=== PATIENT | female | born 1925 | race Caucasian/White ===

== ENCOUNTER 2016-04-15 11:54 | Inpatient (IN) | payer MEDICARE ==
[~2016-04-15] VITALS: Ht 157.5 cm; Wt 49.0 kg
[~2016-04-15 11:54] MED LIST: ALPR0.254 PO; AZIT-21 PO; ESCI10TA55 PO; FLUO20CA25 PO; GUAI120S36 PO; IBP600T1; MELO7.5T PO; MEMA28CA PO; METO25TA PO; MTP25TSR PO; OMEP-10 PO; OMEP20TA7 PO; ONDA4TAB8 PO; PRAV10TA PO; PROP1TAB77 PO; SMV10T PO; TRAM50TA2 PO; cholesterol pill
[2016-04-15] MEDS ORDERED: METO-270 (12:30)
[2016-04-15 13:40] LABS: RED BLOOD COUNT 4.61 10^6/uL (4.35-5.85); WHITE BLOOD COUNT 6.9 10^3/uL (4.3-11.0)
[2016-04-15 13:41] LABS: BASOPHILS % (AUTO) 0 % (0-10); EOSINOPHILS % (AUTO) 1 % (0-10); LYMPHOCYTES # (AUTO) 1.4 X 10^3 (1.0-4.0); LYMPHOCYTES % (AUTO) 20 % (12-44); MEAN CORPUSCULAR HEMOGLOBIN 31 PG (25-34); MEAN CORPUSCULAR HGB CONC 34 G/DL (32-36); MEAN CORPUSCULAR VOLUME 92 FL (80-99); MEAN PLATELET VOLUME 10.2 FL (7.4-10.4); MONOCYTES # (AUTO) 0.9 X 10^3 (0.0-1.0); MONOCYTES % (AUTO) 13 % (0-12); NEUTROPHILS # (AUTO) 4.6 X 10^3 (1.8-7.8); NEUTROPHILS % (AUTO) 67 % (42-75); PLATELET COUNT 185 10^3/uL (130-400); RED CELL DISTRIBUTION WIDTH 12.9 % (10.0-14.5)
[2016-04-15 13:45] LABS: KETONES,URINE 1+ (NEGATIVE); LEUKOCYTE ESTERASE ,URINE 3+ (NEGATIVE); NITRITE,URINE POSITIVE (NEGATIVE); PH,URINE 5 (5-9); PROTEIN,URINE 3+ (NEGATIVE); UROBILINOGEN,URINE 4 MG/DL (NORMAL)
--- NOTE | 2016-04-15 13:54 | Diagnostic Imaging Report ---
EXAMINATION: Left elbow at 129h. INDICATION: Fell 2 weeks ago, elbow pain. 4 views were obtained. There are no prior studies available for comparison. There is a slightly displaced fracture extending obliquely through the lateral epicondyle. There may be another transverse fracture line in this region as well. In addition there does appear to be mild impaction fracture of the articular surface of the radial head. No other fracture or acute bony abnormality is identified. 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 There is also generalized soft tissue edema about the elbow joint. IMPRESSION: There is a complex slightly displaced fracture of the lateral epicondyle of the distal humerus. There is also a mild impaction fracture of the articular surface of the radial head. No other acute bony abnormality is noted. If further imaging is desired, then CT would be recommended. There is generalized soft tissue edema about the elbow joint. Dictated by: Dictated on workstation # [id number]
[2016-04-15 13:55] LABS: ALANINE AMINOTRANSFERASE 9 U/L (0-55); ALBUMIN 4.1 G/DL (3.2-4.5); ANION GAP 10 MMOL/L (5-14); ASPARTATE AMINO TRANSFERASE 13 U/L (5-34); BILIRUBIN,TOTAL 1.5 MG/DL (0.1-1.0); BLOOD UREA NITROGEN 10 MG/DL (7-18); BUN/CREATININE RATIO 13; CALCIUM 9.6 MG/DL (8.5-10.1); CARBON DIOXIDE 24 MMOL/L (21-32); CHLORIDE 104 MMOL/L (98-107); CREATININE SERUM 0.77 MG/DL (0.60-1.30); GFR ESTIMATED > 60; GLUCOSE 100 MG/DL (70-105); POTASSIUM 3.7 MMOL/L (3.6-5.0); SODIUM 138 MMOL/L (135-145); TOTAL PROTEIN 7.3 G/DL (6.4-8.2)
[2016-04-15 14:03] LABS: BILIRUBIN,URINE 1+ (NEGATIVE)
[2016-04-15 14:04] LABS: WBC,URINE 25-50 /HPF
--- NOTE | 2016-04-15 14:42 | ED Upper Extremity ---
General Chief Complaint: Upper Extremity Stated Complaint: FALL/L ELBOW INJ Nursing Triage Note: Son states patient fell on deck yesterday morning around 0700- c/o left elbow pain, mild swelling and bruising. Denies loc or hitting head. HR noted to be irreg on monitor. Pt states she has been weak Nursing Sepsis Screen: No Definite Risk Source: patient, family Exam Limitations: clinical condition History of Present Illness Time seen by provider: 14:36 Initial Comments This 89-year-old white female presents with her son after she fell on her deck yesterday sustaining an injury to her left elbow which has become progressively red and swollen. Further history from this done reveals that the patient has been falling frequently at home. She suffers from dementia. The son and the rest of the siblings appreciate that the patient is not adequately protected at home without significantly more personal support. The patient has no particular complaints. She suffers from dementia but is pleasant and cooperative on history taking. Allergies and Home Medications Allergies Coded Allergies: morphine (Unverified Allergy, Unknown, 04/15/16) oxycodone (Verified Allergy, Unknown, 04/15/16) Home Medications Alprazolam 0.25 Mg Tablet #60 (Reported) Escitalopram Oxalate 10 Mg Tablet #30 (Reported) Memantine HCl 28 Mg Cap.spr.24 #30 (Reported) Metoprolol Succinate 25 Mg Tab.sr.24h 25 MG PO DAILY (Reported) Metoprolol Succinate 25 Mg Tab.er.24h #30 (Reported) Omeprazole 20 Mg Tablet.dr #30 20 MG PO BID Prescribed by: NIKA LAW on 08/29/151814 Ondansetron 4 Mg Tab.rapdis #10 4 MG PO Q4H PRN PRN NAUSEA/VOMITING Prescribed by: NIKA LAW on 08/29/151814 Pravastatin Sodium 10 Mg Tablet #30 (Reported) Simvastatin 10 Mg Tab 10 MG PO HS (Reported) Constitutional: no symptoms reported EENTM: ear pain vision loss Respiratory: cough Gastrointestinal: diarrhea vomiting Genitourinary: no symptoms reported Musculoskeletal: see HPI other (pain and swelling over the left elbow) Skin: No rash, other Psychiatric/Neurological: No Symptoms Reported (there is a cellulitis over the left elbow with moderate soft tissue swelling) Past Eakgedi-Xhdxes-Urqhwa Hx Patient Social History Alcohol Use: Denies Use Recreational Drug Use: No Smoking Status: Never a Smoker 2nd Hand Smoke Exposure: Yes Recent Foreign Travel: No Contact w/Someone Who Travel: No Recent Infectious Disease Expo: No Recent Hopitalizations: No Immunizations Up To Date Tetanus Booster (TDap): Unknown Date of Pneumonia Vaccine: Nov 12, 2011 Surgeries HX Surgeries: Yes Surgeries: Hysterectomy, Orthopedic Respiratory Hx Respiratory Disorders: No Cardiovascular Hx Cardiac Disorders: Yes Cardiac Disorders: Angina, High Cholesterol Neurological Hx Neurological Disorders: Yes Neurological Disorders: Dementia Reproductive System Hx Reproductive Disorders: No Genitourinary Hx Genitourinary Disorders: No Gastrointestinal Hx Gastrointestinal Disorders: Yes Gastrointestinal Disorders: Diverticulosis, Irritable Bowel Musculoskeletal Hx Musculoskeletal Disorders: Yes Musculoskeletal Disorders: Arthritis, Back Injury Endocrine Hx Endocrine Disorders: No HEENT HX ENT Disorders: No Cancer Hx Cancer: No Psychosocial Hx Psychiatric Problems: Yes Behavioral Health Disorders: Anxiety Integumentary HX Skin/Integumentary Disorder: No Blood Transfusions Hx Blood Disorders: No Reviewed Nursing Assessment Reviewed/Agree w Nursing PMH: Yes Family Medical History Significant Family History: No Pertinent Family Hx Physical Exam Vital Signs Vital Sign - Last 12Hours 04/15/16 12:23 Pulse 80 Resp 18 B/P 104/63 Pulse Ox 99 Capillary Refill : Less Than 3 Seconds General Appearance: WD/WN no apparent distress HEENT: normal ENT inspection Neck: normal inspection Cardiovascular: regular rate, rhythm Respiratory: lungs clear Gastrointestinal: normal bowel sounds non tender Shoulder: normal inspection non-tender no evidence of injury Elbow/Forearm: soft tissue tenderness (there is cellulitis over the posterior aspect left elbow. No crepitus or instability was noted.), swelling Wrist: Yes normal inspection, Yes non-tender, Yes no evidence of injury Hand: normal inspection, non-tender, no evidence of injury Neurologic/Psychiatric: no motor/sensory deficits other (patient demonstrates an inability to cerebrate normally. Although she is oriented to person place and time she is unable to recall events and has confusion concerning common things) Skin: normal color warm/dry other Progress/Results/Core Measures Results/Orders Lab Results Laboratory Tests Test 04/15/16 12:15 04/15/16 13:30 Range/Units Urine Bacteria FEW H /HPF Urine Bilirubin 1+ H NEGATIVE Urine Casts NONE /LPF Urine Clarity SLIGHTLY CLOUDY Urine Color ILDA H Urine Crystals NONE /LPF Urine Culture Indicated YES Urine Glucose (UA) NEGATIVE NEGATIVE Urine Ketones 1+ H NEGATIVE Urine Leukocyte Esterase 3+ H NEGATIVE Urine Mucus LARGE H /LPF Urine Nitrite POSITIVE H NEGATIVE Urine Protein 3+ H NEGATIVE Urine RBC 2-5 H /HPF Urine RBC (Auto) 1+ H NEGATIVE Urine Specific Bradley 1.020 1.016-1.022 Urine Squamous Epithelial Cells 10-25 H /HPF Urine Urobilinogen 4 H NORMAL MG/DL Urine WBC 25-50 H /HPF Urine pH 5 5-9 Alanine Aminotransferase (ALT/SGPT) 9 0-55 U/L Albumin 4.1 3.2-4.5 G/DL Alkaline Phosphatase 102 40-136 U/L Anion Gap 10 5-14 MMOL/L Aspartate Amino Transf (AST/SGOT) 13 5-34 U/L BUN/Creatinine Ratio 13 Basophils # (Auto) 0.0 0.0-0.1 10^3/uL Basophils (%) (Auto) 0 0-10 % Blood Urea Nitrogen 10 7-18 MG/DL Calcium Level 9.6 8.5-10.1 MG/DL Carbon Dioxide Level 24 21-32 MMOL/L Chloride Level 104 98-107 MMOL/L Creatinine 0.77 0.60-1.30 MG/DL Eosinophils # (Auto) 0.0 0.0-0.3 10^3/uL Eosinophils (%) (Auto) 1 0-10 % Estimat Glomerular Filtration Rate > 60 Glucose Level 100 70-105 MG/DL Hematocrit 43 35-52 % Hemoglobin 14.4 11.5-16.0 G/DL Lymphocytes # (Auto) 1.4 1.0-4.0 X 10^3 Lymphocytes (%) (Auto) 20 12-44 % Mean Corpuscular Hemoglobin 31 25-34 PG Mean Corpuscular Hemoglobin Concent 34 32-36 G/DL Mean Corpuscular Volume 92 80-99 FL Mean Platelet Volume 10.2 7.4-10.4 FL Monocytes # (Auto) 0.9 0.0-1.0 X 10^3 Monocytes (%) (Auto) 13 H 0-12 % Neutrophils # (Auto) 4.6 1.8-7.8 X 10^3 Neutrophils (%) (Auto) 67 42-75 % Platelet Count 185 130-400 10^3/uL Potassium Level 3.7 3.6-5.0 MMOL/L Red Blood Count 4.61 4.35-5.85 10^6/uL Red Cell Distribution Width 12.9 10.0-14.5 % Sodium Level 138 135-145 MMOL/L Total Bilirubin 1.5 H 0.1-1.0 MG/DL Total Protein 7.3 6.4-8.2 G/DL White Blood Count 6.9 4.3-11.0 10^3/uL My Orders Orders-KEATON MAYA MD Cbc With Automated Diff (04/15/16 12:53) Comprehensive Metabolic Panel (04/15/16 12:53) Ua Culture If Indicated (04/15/16 12:53) Elbow, Left, 3 Views (04/15/16 12:53) Urine Culture (04/15/16 12:15) Ceftriaxone Injection (Rocephin Injectio (04/15/16 14:45) Vital Signs/I&O Vital Sign - Last 12Hours 04/15/16 12:23 Pulse 80 Resp 18 B/P 104/63 Pulse Ox 99 Blood Pressure Mean: 77 Progress Note : Time: 14:40 Progress Note The patient's left elbow x-ray demonstrated a comminuted nondisplaced left supracondylar fracture over his lateral aspect. Because of the cellulitis overlying the joint gram of Rocephin IV was given. Telephone consultation was undertaken with Dr. GRIMALDO and arrangements were made for the patient to be admitted and for social worker delinquency prevention to see her in the morning for assistance with placement. Dr. Alcantar was notified and will see the patient tomorrow in the hospital for her left supracondylar fracture. We discussed IV Rocephin which she thought was a reasonable choice as well as not immobilizing the patient's extremity as she appeared to be essentially pain- free. Departure Impression Impression: Primary Impression: Elbow fracture, left Qualified Code: S42.402A - Unspecified fracture of lower end of left humerus, initial encounter for closed fracture Additional Impressions: Frequent falls Dementia Qualified Code: F03.90 - Unspecified dementia without behavioral disturbance Disposition: ADMITTED INPATIENT Condition: Improved Departure-Patient Inst. Referrals: LOAN GRIMALDO MD (PCP/Family) Primary Care Physician KEATON MAYA MD Apr 15, 2016 14:42
[2016-04-15] MEDS ORDERED: cefTRIAXone INJECTION 1,000 MG in NS (IVPB) 50 ML IV ONE (14:45)
[2016-04-15] MEDS ORDERED: ONDANSETRON 4 MG/2 ML (SDV) Z0FRAN IV PRN (16:15)
[2016-04-15] MEDS ORDERED: fentaNYL INJECTION 100 MCG/2 ML AMP IV PRN (16:15)
[2016-04-15 16:30] VITALS: BP 114/68
[2016-04-15] MEDS ORDERED: ALPRAZolam 0.25 MG (XANAX) TAB PO PRN (19:00)
[2016-04-15 20:00] VITALS: BP 134/73
[2016-04-15] MEDS: PANTOPRAZOLE 40 MG (PROTONIX) TAB PO SCH (21:32)
[2016-04-16] VITALS: BP 118/56
[2016-04-16 04:00] VITALS: BP 141/60
--- NOTE | 2016-04-16 07:35 | Consultation ---
History of Present Illness History of Present Illness Patient Consulted On(mary/time) 04/16/16 07:30 Date of Admission 04/15/16 History of Present Illness Ms. Desir is a 89 y/o white female who presented to the ER with left elbow pain. Patient has a significant past medical history of dementia. She originally reported falling 2 days prior, and injuring the elbow. However, during my exam she stated that she fell 2 weeks prior. X-rays were performed in the ER, which revealed a lateral condyle humerus fracture, and impacted radius head fracture. Patient was initiated on Rocephin, due to cellulitis at the site. She has several eschars and abrasion on the left elbow, with healing more consistent with a injury greater than 1 week ago. She denies pain in the extremity. Allergies and Home Medications Allergies Coded Allergies: morphine (Unverified Allergy, Unknown, 04/15/16) oxycodone (Verified Allergy, Unknown, 04/15/16) Home Medications Alprazolam 0.25 Mg Tablet 0.25 MG PO QID PRN PRN ANXIETY (Reported) Escitalopram Oxalate 10 Mg Tablet 10 MG PO DAILY (Reported) Memantine HCl 28 Mg Cap.spr.24 28 MG PO DAILY (Reported) Metoprolol Succinate 25 Mg Tab.sr.24h 25 MG PO DAILY (Reported) Omeprazole 20 Mg Capsule.dr 20 MG PO DAILY PRN PRN INDIGESTION (Reported) Pravastatin Sodium 10 Mg Tablet 10 MG PO DAILY (Reported) Past Wbfhuwo-Xwslqa-Nlzhpz Hx Patient Social History Alcohol Use: Denies Use Recreational Drug Use: No Smoking Status: Never a Smoker 2nd Hand Smoke Exposure: Yes Recent Foreign Travel: No Contact w/Someone Who Travel: No Recent Infectious Disease Expo: No Recent Hopitalizations: No Physical Abuse Screen: No Sexual Abuse: No Immunizations Up To Date Tetanus Booster (TDap): Unknown Date of Pneumonia Vaccine: Nov 12, 2011 Date of Influenza Vaccine: Nov 16, 2015 Seasonal Allergies Seasonal Allergies: No Surgeries HX Surgeries: Yes Surgeries: Hysterectomy, Orthopedic Respiratory Hx Respiratory Disorders: No Cardiovascular Hx Cardiac Disorders: Yes Cardiac Disorders: Angina, High Cholesterol Neurological Hx Neurological Disorders: Yes Neurological Disorders: Dementia Reproductive System Hx Reproductive Disorders: No Genitourinary Hx Genitourinary Disorders: No Gastrointestinal Hx Gastrointestinal Disorders: Yes Gastrointestinal Disorders: Diverticulosis, Irritable Bowel Musculoskeletal Hx Musculoskeletal Disorders: Yes Musculoskeletal Disorders: Arthritis, Back Injury Endocrine Hx Endocrine Disorders: No HEENT HX ENT Disorders: No Cancer Hx Cancer: No Psychosocial Hx Psychiatric Problems: Yes Behavioral Health Disorders: Anxiety Integumentary HX Skin/Integumentary Disorder: No Blood Transfusions Hx Blood Disorders: No Reviewed Nursing Assessment Reviewed/Agree w Nursing PMH: Yes Family Medical History Significant Family History: No Pertinent Family Hx Family Medial History: Cardiovascular disease Dementia Hypertension Myocardial infarction Review of Systems-General Constitutional: No chills Respiratory: no symptoms reported Cardiovascular: no symptoms reported Musculoskeletal: see HPI Skin: change in color Psychiatric/Neurological: Other (Dementia) Physical Exam-General Problems Physical Exam Vital Signs Vital Sign - Last 12Hours 04/15/16 04/15/16 12:23 16:30 Temp 97.4 Pulse 80 Resp 18 B/P 104/63 Pulse Ox 99 O2 Delivery Room Air Capillary Refill : Less Than 3 SecondsLess Than 3 Seconds General Appearance: no apparent distress Neck: full range of motion normal inspection Respiratory: no respiratory distress no accessory muscle use Cardiovascular: normal peripheral pulses Gastrointestinal: soft Extremities: no calf tenderness other (Mild swelling and erythema of the left elbow, no fluctunace. range of motion intact.) Neurologic/Psychiatric: keeper head II-XII nml as tested no motor/sensory deficits alert other Assessment/Plan Assessment/Plan Admission Diagnosis/Plan Left elbow cellulitis Left lateral supracondylar humerus fracture Left radial head impaction fracture continue antibiotics agree with no splinting, due to increased fall risk No activity with LUE until seen in clinic Follow up in clinic in 1-2 weeks Clinical Quality Measures DVT/VTE Risk/Contraindication: Risk Factor Score Per Nursin RFS Level Per Nursing on Admit: 4+=Very High BRYAN RANDOLPH Apr 16, 2016 07:35 RFS Level Per Nursing on Admit: 4+=Very High BRYAN RANDOLPH Apr 16, 2016 07:35
[2016-04-16 08:00] VITALS: BP 115/68
[2016-04-16] MEDS ORDERED: CATHETER FLUSH 10 ML SYR IV PRN (08:00)
[2016-04-16] MEDS: PANTOPRAZOLE 40 MG (PROTONIX) TAB PO SCH ×2 (09:56→20:50)
[2016-04-16] MEDS: cefTRIAXone 1 GM/NS 50 ML IVPB IV SCH ×2 (09:57)
--- NOTE | 2016-04-16 10:43 | History & Physicial ---
History of Present Illness History of Present Illness Reason for visit/HPI PT IS AN 89 Y/O FEMALE WHO IS KNOWN TO ME FROM CLINIC. THE PATIENT LIVES WITH ONE OF HER SONS - AND HER OTHER SON VISITS SEVERAL TIMES A DAY CHECKING IN ON HIS MOM. HE REPORTS THAT HIS MOM HAS BEEN WEAK AND FALLING RECENTLY. APPARENTLY HE NOTICED THAT SHE WAS FAVORING HER LEFT ARM AND STARTED TO HAVE SWELLING AND REDNESS OF HER ARM. HE SUBSEQUENTLY BROUGHT HER TO THE HOSPITAL WHERE SHE WAS FOUND TO HAVE CELLULITIS AND A FRACTURE OF HER ELBOW ON THE LEFT SIDE. Date of Admission Apr 15, 2016 at 14:51 I consulted on this patient on 04/16/16 10:36 Attending Physician Loan Child MD Admitting Physician Loan Child MD Consult DR. ABDUL Allergies and Home Medications Allergies Coded Allergies: morphine (Unverified Allergy, Unknown, 04/15/16) oxycodone (Verified Allergy, Unknown, 04/15/16) Home Medications Alprazolam 0.25 Mg Tablet #60 (Reported) Escitalopram Oxalate 10 Mg Tablet #30 (Reported) Memantine HCl 28 Mg Cap.spr.24 #30 (Reported) Metoprolol Succinate 25 Mg Tab.sr.24h 25 MG PO DAILY (Reported) Metoprolol Succinate 25 Mg Tab.er.24h #30 (Reported) Omeprazole 20 Mg Tablet.dr #30 20 MG PO BID Prescribed by: NIKA LAW on 08/29/151814 Ondansetron 4 Mg Tab.rapdis #10 4 MG PO Q4H PRN PRN NAUSEA/VOMITING Prescribed by: NIKA LAW on 08/29/151814 Pravastatin Sodium 10 Mg Tablet #30 (Reported) Simvastatin 10 Mg Tab 10 MG PO HS (Reported) Past Faagmia-Kkjnhf-Wxsdvs Hx Patient Social History Marrital Status: Living Status: LIVES WITH SON IN THEIR SHARED HOME Employed/Student: retired Alcohol Use: Denies Use Recreational Drug Use: No Smoking Status: Never a Smoker 2nd Hand Smoke Exposure: Yes Physical Abuse Screen: No Sexual Abuse: No Recent Foreign Travel: No Contact w/other who traveled: No Recent Hopitalizations: No Recent Infectious Disease Expo: No Immunizations Up To Date Tetanus Booster (TDap): Unknown Date of Pneumonia Vaccine: Nov 12, 2011 Date of Influenza Vaccine: Nov 16, 2015 Seasonal Allergies Seasonal Allergies: No Surgeries HX Surgeries: Yes Surgeries: Hysterectomy, Orthopedic Respiratory Hx Respiratory Disorders: No Cardiovascular Hx Cardiovascular Disorders: Yes Cardiac Disorders: Angina, High Cholesterol Neurological Hx Neurological Disorders: Yes Neurological Disorders: Dementia Reproductive System Hx Reproductive Disorders: No Genitourinary Hx Genitourinary Disorders: No Gastrointestinal Hx Gastrointestinal Disorders: Yes Gastrointestinal Disorders: Diverticulosis, Irritable Bowel Musculoskeletal Hx Musculoskeletal Disorders: Yes Musculoskeletal Disorders: Arthritis, Back Injury Endocrine Hx Endocrine Disorders: No HEENT HX ENT Disorders: No Cancer Hx Cancer: No Psychosocial Hx Psychiatric Problems: Yes Behavioral Health Disorders: Anxiety Integumentary HX Skin/Integumentary Disorder: No Blood Transfusions Hx Blood Disorders: No Reviewed Nursing Assessment Reviewed/Agree w Nursing PMH: Yes Family Medical History Significant Family History: No Pertinent Family Hx Family Hx: Cardiovascular disease Dementia Hypertension Myocardial infarction Constitutional: No dizziness, No fever, No malaise, weakness EENTM: No hoarseness, No throat swelling Respiratory: no symptoms reported Cardiovascular: no symptoms reported Gastrointestinal: No abdominal pain, nausea Genitourinary: no symptoms reported Musculoskeletal: other (PAIN LEFT ELBOW) Skin: other (ERYTHEMA OF LEFT ARM, ) Psychiatric/Neurological: Anxiety Depressed Weakness All Other Systems Reviewed Negative Unless Noted: Yes Physical Exam Vital Signs Vital Sign - Last 12Hours 04/15/16 04/15/16 12:23 16:30 Temp 97.4 Pulse 80 Resp 18 B/P 104/63 Pulse Ox 99 O2 Delivery Room Air Capillary Refill : Less Than 3 SecondsLess Than 3 Seconds General Appearance: No Apparent Distress Thin Eyes: Bilateral Eye EOMI, Bilateral Eye Normal Inspection, Bilateral Eye PERRL HEENT: PERRL/EOMI Pharynx Normal Neck: Full Range of Motion Supple Respiratory: Chest Non Tender Lungs Clear Normal Breath Sounds No Accessory Muscle Use No Respiratory Distress Cardiovascular: Regular Rate, Rhythm No Edema Gastrointestinal: Normal Bowel Sounds No Organomegaly No Pulsatile Mass Soft Rectal: Deferred Extremity: Pedal Edema (TRACE) Swelling (LEFT FOREARM TO ELBOW) Neurologic/Psychiatric: Alert Other (ORIENTED TO SELF) Skin: Erythema (LEFT ARM FROM WRIST TO ELBOW, SCABS ON FOREARMS BILATERALLY) Lymphatic: No Adenopathy Assessment/Plan Assessment and Plan CELLULITIS OF LEFT ARM FRACTURE OF LEFT ELBOW DEMENTIA HYPERTENSION WEAKNESS ANXIETY DEPRESSION UNDERWEIGHT PT ADMITTED TO THE HOSPITAL FOR CELLULITIS - STARTED ON IV ANTIBIOTICS, WILL CONTINUE TO MONITOR SKIN - AND HOPEFULLY OVER THE NEXT 2-3 DAYS WITH IMPROVEMENT IN SYMPTOMS, WILL TRANSITION TO [facility] AND THEN GET PT SET UP FOR ASSISTED. FRACTURE OF LEFT ELBOW - DEFER TO [facility]- DISCUSSION TODAY WITH [facility] - THEY PLAN ON FOLLOW UP OUTPATIENT. HTN - RESTART HOME MEDS. ANXIETY AND DEPRESSION - RESTART SSRI AND ANXIOLYTICS. DVT PROPHYLAXIS WITH ALEJANDRO HOSE AND LOVENOX. PPI FOR GI PROPHYLAXIS Admission Diagnosis CELLULITIS OF LEFT ARM FRACTURE OF LEFT ELBOW DEMENTIA HYPERTENSION WEAKNESS ANXIETY DEPRESSION UNDERWEIGHT Clinical Quality Measures DVT/VTE Risk/Contraindication: Risk Factor Score Per Nursin RFS Level Per Nursing on Admit: 4+=Very High LOAN CHILD MD Apr 16, 2016 10:43
[2016-04-16] MEDS ORDERED: ENOXAPARIN 40 MG/0.4 ML (LOVENOX) SYR SC SCH (10:45)
[2016-04-16] MEDS ORDERED: OMEP20CA12 PO (11:21)
[2016-04-16 12:00] VITALS: BP 121/65
[2016-04-16] MEDS: CATHETER FLUSH 10 ML SYR IV SCH ×2 (13:30→20:50)
--- NOTE | 2016-04-16 14:03 | Physical Therapy Evaluation ---
PT Evaluation-General Medical Diagnosis Admission Date Apr 15, 2016 at 14:51 Medical Diagnosis: left elbow fracture/cellulitis Onset Date: Apr 15, 2016 Therapy Diagnosis Therapy Diagnosis: debility Height/Weight Height (Feet): 5 Height (Inches): 2.00 Weight (Pounds): 108 Weight (Ounces): 0.0 Precautions Precautions/Isolations: Standard Precautions Weight Bear Status Weight Bearing Restriction: Non Weight Bearing Location Restriction: L UE Referral Physician: Danyell Reason for Referral: Evaluation/Treatment Medical History Pertinent Medical History: Arthritis, Dementia, HTN Additional Medical History anxiety/depression Current History frequent falls at home per family/noticed left UE swelling and redness and brought to ED Reviewed History: Yes Social History Home: Single Level Current Living Status: Children Prior/Core FIM Prior Level of Function Functional [place] Measure 0=Not Assessed/NA 4=Minimal Assistance 1=Total Assistance 5=Supervision or Setup 2=Maximal Assistance 6=Modified [place] 3=Moderate Assistance 7=Complete [place] Bed Mobility: 7 Transfers (B,C,W/C) (FIM): 7 Gait: 7 per daughter, patient has SBQC, however, it causes her to trip due to dementia PT Evaluation-Current Subjective Patient is found sitting EOB with family present. Patient states, "Where am I and when did I get here." Pain Numeric Pain Scale: 0-No Pain Location: No Pain Reported Objective Patient Orientation: Confused Problem Solving: Poor sling left UE ROM/Strength ROM Lower Extremities bilateral LE WFL Strenght Lower Extremities bilateral LE 4-/5 grossly (unable to formally test due to dementia and patient' s inability to follow direction) Integumentary/Posture Integumentary refer to nursing notes Bowel Incontinence: No Bladder Incontinence: No Posture WFL Neuromuscular (Tone, Coordination, Reflexes) diminished coordination due to dementia Sensory Vision: Wears Glasses Hearing: Impaired Sensation Right Lower Extremit: Intact Sensation Left Lower Extremity: Intact Transfers Functional [place] Measure 0=Not Assessed/NA 4=Minimal Assistance 1=Total Assistance 5=Supervision or Setup 2=Maximal Assistance 6=Modified [place] 3=Moderate Assistance 7=Complete [place] Transfers (B, C, W/C) (FIM): 5 Scootin Rollin Supine to/from Sit: 5 Sit to/from Stand: 5 Gait Mode of Locomotion: Walk Anticipated Mode of Locomotion: Walk Gait (FIM): 4 Distance (FIM): 3=150 ft Distance: 300' Gait Level of Assist: 4 Gait Persons Needed: 1 Gait Assistive Device: 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 female, will benefit from short term skilled PT to address functional mobility to improve current LOF. Patient will transfer to [place] per report upon dismissal from hospital. Rehab Potential: Fair Post Rehab Potential-Barriers: dementia PT Half-Way Goals Damage Assessor Goals PT Half-Way Goals Time Frame: Apr 20, 2016 Transfers (B,C,W/C) (FIM): 5 Gait (FIM): 4 Gait distance (FIM): 3=150 ft Distance: 300' Gait Level of Assist: 4 PT Plan Problem List Problem List: Functional Strength, Safety Treatment/Plan Treatment Plan: Continue Plan of Care Treatment Plan: Education, Functional Activity Adela, Functional Strength, Gait , Safety, Therapeutic Exercise, Transfers Treatment Duration: Apr 20, 2016 # of days/week 5 Visits Per Week: 5 Pt/Family Agrees w/Plan: Yes Safety Risks/Education Patient Education: Safety Issues Teaching Recipient: Patient, Family Teaching Methods: Discussion Response to Teaching: Reinforcement Needed Discharge Recommendations Therapy D/C Recommendations: [facility] Placement Time/GCodes Time In: 1300 Time Out: 1320 Total Billed Treatment Time: 20 Total Billed Treatment 1 visit EVLowC 20 min BI KIM PT Apr 16, 2016 14:03
[2016-04-16 15:45] VITALS: BP 109/69
[2016-04-16] MEDS ORDERED: ACETAMINOPHEN 500 MG TAB (TYLENOL) PO PRN (17:15)
[2016-04-16] MEDS ORDERED: IBUPROFEN 600 MG (MOTRIN) TAB PO SCH (18:00)
[2016-04-16 19:40] VITALS: BP 105/58
[2016-04-16] MEDS: SIMvastatin 10 MG (ZOCOR) TAB PO SCH (20:50)
[2016-04-16] MEDS: MEMANTINE 10 MG (NAMENDA) TABLET PO SCH (20:50)
[2016-04-16] MEDS: ALPRAZolam 0.25 MG (XANAX) TAB PO SCH ×2 (20:52→23:10)
[2016-04-17 00:15] VITALS: BP 105/57
[2016-04-17 04:10] VITALS: BP 122/71
[2016-04-17] MEDS: CATHETER FLUSH 10 ML SYR IV SCH ×3 (06:02→20:59)
[2016-04-17 08:00] VITALS: BP 116/69
[2016-04-17] MEDS: PANTOPRAZOLE 40 MG (PROTONIX) TAB PO SCH ×2 (08:57→20:58)
[2016-04-17] MEDS: cefTRIAXone 1 GM/NS 50 ML IVPB IV SCH ×2 (08:57)
[2016-04-17] MEDS: MEMANTINE 10 MG (NAMENDA) TABLET PO SCH ×2 (08:58→20:58)
--- NOTE | 2016-04-17 09:19 | Progress Note (SOAP) ---
Subjective Subjective/Events-last exam PT REPORTS FEELING BETTER TODAY - PER HER REPORT, ARM/ELBOW DOES NOT HURT Review of Systems General: Fatigue Malaise HEENT: No Head Aches Pulmonary: No Dyspnea, No Cough Cardiovascular: No: Chest Pain Gastrointestinal: No: Abdominal Pain, Constipation, Diarrhea, Nausea Genitourinary: No Dysuria Musculoskeletal: : arm pain (MILD) Neurological: : ConfusionNo: Weakness Objective Exam Vital Signs Date Time Temp Pulse Resp B/P Pulse Ox O2 Delivery O2 Flow Rate FiO2 04/17/16 04:10 96.5 72 14 122/71 98 Room Air 04/17/16 00:15 97.5 70 14 105/57 97 Room Air 04/16/16 21:00 99.6 04/16/16 20:50 Room Air 04/16/16 19:40 99.6 80 20 105/58 93 Room Air 04/16/16 17:30 100.6 04/16/16 17:23 100.0 04/16/16 15:45 100.6 100 20 109/69 98 Room Air 04/16/16 12:00 98.3 87 20 121/65 97 Room Air I & O 04/17/16 07:00 Intake Total 1100 ml Output Total 200 ml Balance 900 ml Capillary Refill : Less Than 3 SecondsLess Than 3 Seconds General Appearance: No Apparent Distress WD/WN HEENT: PERRL/EOMI Neck: Full Range of Motion Supple Respiratory: Chest Non Tender Decreased Breath Sounds Cardiovascular: Regular Rate, Rhythm Gastrointestinal: normal bowel sounds non tender soft no organomegaly no pulsatile mass Extremity: No Pedal Edema Neurologic/Psychiatric: Alert Oriented x3 No Motor/Sensory Deficits Normal Mood/Affect Skin: Warm/Dry Lymphatic: No Adenopathy Results Lab Microbiology 04/15/16 Urine Culture - Preliminary, Resulted NO GROWTH Assessment/Plan Assessment/Plan Assess & Plan/Chief Complaint CELLULITIS LEFT ARM FX OF LEFT ELBOW DEMENTIA WEAKNESS HYPERTENSION HYPERLIPIDEMIA PT WITH IMPROVED SYMPTOMS OF CELLULITIS - CONTINUE WITH ANTIBIOTICS. LEFT ELBOW FRACTURE - DISCUSSED WITH ORTHOPEDIC SURGEON - -PT WILL NOT LEAVE ON THE SLING - CONTINUE WITH SUPPORTIVE CARE. DEMENTIA - SUPPORTIVE CARE HTN - RESTART HOME MEDICATIONS HYPERLIPIDEMIA - MONITOR LABS. Clinical Quality Measures DVT/VTE Risk/Contraindication: Risk Factor Score Per Nursin RFS Level Per Nursing on Admit: 4+=Very High LOAN GRIMALDO MD Apr 17, 2016 09:19
--- NOTE | 2016-04-17 11:55 | Physical Therapy Daily Note ---
PT Daily Note-Current Subjective Patient in recliner pre tx, agrees to PT, patient confused but pleasant. She has no complaints of pain. Appearance Patient in recliner post tx with nurse call, phone, tray, chair alarm on, son in the room. Mental Status Patient Orientation: Confused Transfers Functional [place] Measure 0=Not Assessed/NA 4=Minimal Assistance 1=Total Assistance 5=Supervision or Setup 2=Maximal Assistance 6=Modified [place] 3=Moderate Assistance 7=Complete IndependenceIRFPAI Quality Coding Scale 6 Independent with activity with or without an assistive device 5 Patient requires set up or clean up by helper. Patient completes activity by themselves 4 Supervision or touching assist (CGA). [place] provide cues , steadying assist 3 The helper provides less than half the effort to complete the activity 2 The helper provides more than half the effort to complete the activity 1 Dependent. The helper does all the effort to complete an activity 7 Patient refused to complete or attempt activity 9 The patient did not perform the activity before the current illness or injury 88 Not attempted due to Medical conditions or safety concerns Transfers (B, C, W/C) (FIM): 4 Sit to/from Stand: 4 MECHANICAL ENGINEERING OFFICER Gait Training Gait (FIM): 4 Distance: 250' Gait Level of Assist: 4 Gait Persons Needed: 1 Gait Assistive Device: Handheld Assist slow ambulation, no LOB Exercises Seated Therapy Exercises: Ankle pumps, Long arc quads, Hip flexion Seated Reps: 20 Treatments transfers, ambulation, functional strengthening Assessment Current Status: Fair Progress improving endurance PT Senior Living Goals Senior Living Goals PT Credit Office Manager Goals Time Frame: Apr 20, 2016 Transfers (B,C,W/C) (FIM): 5 Gait (FIM): 4 Gait distance (FIM): 3=150 ft Distance: 300' Gait Level of Assist: 4 PT Plan Problem List Problem List: Activity Tolerance, Functional Strength, Safety, Balance, Gait, Transfer, ROM Treatment/Plan Treatment Plan: Continue Plan of Care Treatment Plan: Education, Functional Activity Adela, Functional Strength, Gait , Safety, Therapeutic Exercise, Transfers Treatment Duration: Apr 20, 2016 Visits Per Week: 5 Safety Risks/Education Patient Education: Gait Training, Transfer Techniques, Correct Positioning, Safety Issues Teaching Recipient: Patient Teaching Methods: Demonstration, Discussion Response to Teaching: Reinforcement Needed Time/GCodes Time In: 1135 Time Out: 1150 Total Billed Treatment Time: 15 Total Billed Treatment 1 visit GT 15 min KRTEK,BRYANNA PT Apr 17, 2016 11:55
[2016-04-17] MEDS: ENOXAPARIN 30 MG/0.3 ML (LOVENOX) SYR SC SCH (11:59)
[2016-04-17 12:00] VITALS: BP 109/55
[2016-04-17 16:44] VITALS: BP 111/80
[2016-04-17] MEDS: IBUPROFEN 600 MG (MOTRIN) TAB PO PRN (16:46)
[2016-04-17 20:51] VITALS: BP 150/69
[2016-04-17] MEDS: SIMvastatin 10 MG (ZOCOR) TAB PO SCH (20:58)
[2016-04-17] MEDS: ALPRAZolam 0.25 MG (XANAX) TAB PO SCH (20:58)
[2016-04-17] MEDS: NEO/POLY/BAC (NEOSPORIN) OINT 15 GM TUBE TOP SCH (20:59)
[2016-04-17] MEDS ORDERED: NEO/POLY/BAC (NEOSPORIN) OINT 15 GM TUBE TOP SCH (21:00)
[2016-04-18 00:24] VITALS: BP 101/58
[2016-04-18] MEDS: CATHETER FLUSH 10 ML SYR IV SCH (05:45)
[2016-04-18 08:00] VITALS: BP 139/73
--- NOTE | 2016-04-18 08:19 | Physical Therapy Daily Note ---
PT Daily Note-Current Subjective Agreeable to PT. Son reports she is going to [facility] today. Mental Status Patient Orientation: Person, Confused Transfers Functional [place] Measure 0=Not Assessed/NA 4=Minimal Assistance 1=Total Assistance 5=Supervision or Setup 2=Maximal Assistance 6=Modified [place] 3=Moderate Assistance 7=Complete IndependenceIRFPAI Quality Coding Scale 6 Independent with activity with or without an assistive device 5 Patient requires set up or clean up by helper. Patient completes activity by themselves 4 Supervision or touching assist (CGA). Erin provide cues , steadying assist 3 The helper provides less than half the effort to complete the activity 2 The helper provides more than half the effort to complete the activity 1 Dependent. The helper does all the effort to complete an activity 7 Patient refused to complete or attempt activity 9 The patient did not perform the activity before the current illness or injury 88 Not attempted due to Medical conditions or safety concerns Transfers (B, C, W/C) (FIM): 4 Supine to/from Sit: 4 (min asssist and skilled cues for sequening. ) Sit to/from Stand: 4 (CGA to guide transfer) On/off toilet with CGA; CGA to stand at sink to wash hands. SBA with erum care. Gait Training Gait (FIM): 4 Distance (FIM): 3=150 ft Gait Level of Assist: 4 (CAN TOP SETTER) slow gait, slightly unsteady; CGA to steady pt Assessment Current Status: Good Progress Bed alarm activated after treatment. Tolerated treatment well. Unsteady with gait but without lob noted. PT Shelter Goals Hotel Assistant Manager Goals PT Shelter Goals Time Frame: Apr 20, 2016 Transfers (B,C,W/C) (FIM): 5 Gait (FIM): 4 (met ) Gait distance (FIM): 3=150 ft Distance: 300' Gait Level of Assist: 4 PT Plan Problem List Problem List: Activity Tolerance, Functional Strength, Safety, Balance, Gait, Bed Mobility Treatment/Plan Treatment Plan: Continue Plan of Care (vs DC) Treatment Plan: Education, Functional Activity Adela, Functional Strength, Gait , Safety, Therapeutic Exercise, Transfers Treatment Duration: Apr 20, 2016 Visits Per Week: 5 Safety Risks/Education Patient Education: Safety Issues Teaching Recipient: Patient Teaching Methods: Discussion Response to Teaching: Reinforcement Needed Time/GCodes Time In: 750 Time Out: 810 Total Billed Treatment Time: 20 Total Billed Treatment visit FA 20 SEAN MAYES PT Apr 18, 2016 08:19
--- NOTE | 2016-04-18 09:16 | Discharge Summary ---
Diagnosis/Chief Complaint Date of Admission Apr 15, 2016 at 14:51 Date of Discharge Admission Diagnosis Admission Diagnosis CELLULITIS OF LEFT ARM FRACTURE OF LEFT ELBOW DEMENTIA HYPERTENSION WEAKNESS ANXIETY DEPRESSION UNDERWEIGHT Discharge Diagnosis CELLULITIS OF LEFT ARM FRACTURE OF LEFT ELBOW DEMENTIA HYPERTENSION WEAKNESS ANXIETY DEPRESSION UNDERWEIGHT Reason Hospital Visit PT IS AN 89 Y/O FEMALE WHO IS KNOWN TO ME FROM CLINIC. THE PATIENT LIVES WITH ONE OF HER SONS - AND HER OTHER SON VISITS SEVERAL TIMES A DAY CHECKING IN ON HIS MOM. HE REPORTS THAT HIS MOM HAS BEEN WEAK AND FALLING RECENTLY. APPARENTLY HE NOTICED THAT SHE WAS FAVORING HER LEFT ARM AND STARTED TO HAVE SWELLING AND REDNESS OF HER ARM. HE SUBSEQUENTLY BROUGHT HER TO THE HOSPITAL WHERE SHE WAS FOUND TO HAVE CELLULITIS AND A FRACTURE OF HER ELBOW ON THE LEFT SIDE. Discharge Summary Discharge Physical Examination Allergies: Coded Allergies: morphine (Unverified Allergy, Unknown, 04/15/16) oxycodone (Verified Allergy, Unknown, 04/15/16) Vitals & I&Os General Appearance: Alert, Cooperative, Other (ORIENTED TO PERSON) HEENT: PERRLA Respiratory: Clear to Auscultation Cardiovascular: Regular Rate Abdominal: Normal Bowel Sounds, Soft, No Tenderness Extremities: No Edema, Normal Pulses Skin: Other (ERYTHEMA LEFT ELBOW IMPROVED) Neuro: Normal Gait Psych/Mental Status: Mental Status NL, Mood NL Hospital Course CELLULITIS LEFT ARM FX OF LEFT ELBOW DEMENTIA WEAKNESS HYPERTENSION HYPERLIPIDEMIA PT WITH IMPROVED SYMPTOMS OF CELLULITIS - CONTINUE WITH ANTIBIOTICS. LEFT ELBOW FRACTURE - DISCUSSED WITH ORTHOPEDIC SURGEON - -PT WILL NOT LEAVE ON THE SLING - CONTINUE WITH SUPPORTIVE CARE. DEMENTIA - SUPPORTIVE CARE HTN - RESTART HOME MEDICATIONS HYPERLIPIDEMIA - MONITOR LABS. Discharge Condition at discharge IMPROVING Instructions to patient/family Please see electonic discharge instructions given to patient. Discharge Medications Reviewed and agree with Discharge Medication list on patient's Discharge Instruction sheet Clinical Quality Measures DVT/VTE Risk/Contraindication: Risk Factor Score Per Nursin RFS Level Per Nursing on Admit: 4+=Very High LOAN GRIMALDO MD Apr 18, 2016 09:16
[2016-04-18] MEDS: MEMANTINE 10 MG (NAMENDA) TABLET PO SCH (09:20)
[2016-04-18] MEDS: PANTOPRAZOLE 40 MG (PROTONIX) TAB PO SCH (09:20)
[2016-04-18] MEDS ORDERED: NEOM28.33 TOP (09:21)
[2016-04-18] MEDS: IBUPROFEN 600 MG (MOTRIN) TAB PO PRN (09:21)
[2016-04-18] MEDS ORDERED: LACT1CAP45 PO (09:21)
[2016-04-18] MEDS ORDERED: IBUP-1773 PO (09:21)
[2016-04-18] MEDS ORDERED: CEPH-507 PO (09:21)
[2016-04-18] MEDS: cefTRIAXone 1 GM/NS 50 ML IVPB IV SCH ×2 (09:21)
[2016-04-18] MEDS: NEO/POLY/BAC (NEOSPORIN) OINT 15 GM TUBE TOP SCH (09:24)
--- NOTE | 2016-04-18 09:24 | Discharge Inst-Skilled Nursing ---
Discharge Inst-Skilled NF Patient Instructions Patient Problems: CELLULITIS LEFT ARM FX OF LEFT ELBOW DEMENTIA WEAKNESS HYPERTENSION HYPERLIPIDEMIA Consult/Follow Up/Orders Follow Up Appt.: ONE WEEK WITH ORTHOPEDIC SURGEON IN THE [facility] FOR [address], SHELTER TO SET UP. [address] [facility] Skilled NF Admit to: [facility] ([facility]) I certify that SNF services are required to be given on an inpatient basis because of the above named patient's need for [place] [facility] care on a continuing basis for the conditions(s) for which he/she was receiving inpatient hospital services prior to his/her transfer to the [facility]. Half-Way Facility Order: Nursing Services, Ux Ui Designer-Evaluate & Treat, Physical Therapy-Evaluate & Treat Discharge Diet: Regular Diet Daily Activity as Tolerated: Yes New & Resume Previous Orders Loan Child Apr 18, 2016 09:22 Medication List: Active Scripts Active Keflex (Cephalexin) 500 Mg Capsule 500 Mg PO TID Acidophilus Lactobacillus (Lactobacillus Acidophilus) 1 Each Capsule 1 Each PO ACHS ONE PILL AC, HS X 10 DAYS Neosporin Ointment (Neomycin Bermeo/Bacitrac Zn/Poly) 28.3 Gm Oint...g. 0 Gm TOP BID Ibuprofen 600 Mg Tablet 600 Mg PO Q6HR PRN Reported Omeprazole 20 Mg Capsule.dr 20 Mg PO DAILY PRN Alprazolam 0.25 Mg Tablet 0.25 Mg PO QID PRN Namenda Xr (Memantine HCl) 28 Mg Cap.spr.24 28 Mg PO DAILY Escitalopram Oxalate 10 Mg Tablet 10 Mg PO DAILY Pravastatin Sodium 10 Mg Tablet 10 Mg PO DAILY Metoprolol Succinate Xl 25 Mg (Metoprolol Succinate) 25 Mg Tab.sr.24h 25 Mg PO DAILY LOAN CHILD MD Apr 18, 2016 09:24
[2016-04-18] MEDS: ENOXAPARIN 30 MG/0.3 ML (LOVENOX) SYR SC SCH (11:00)
[2016-04-18 14:05] VITALS: BP 139/73
== END 2016-04-18 13:05 | DRG 603 ==
LOC: EDUNIT# 11:54 → ER 11:56 → 4TH 14:51
PROVIDERS: ADMIT Family Medicine; ATTEND Family Medicine
DX: L03.114 Cellulitis of left upper limb (principal); S42.422A Displaced comminuted supracondylar fracture without intercondylar fracture of left humerus, initial encounter for closed fracture; S52.122A Displaced fracture of head of left radius, initial encounter for closed fracture; F03.90 Unspecified dementia, unspecified severity, without behavioral disturbance, psychotic disturbance, mood disturbance, and anxiety; R63.6 Underweight; F41.9 Anxiety disorder, unspecified; F32.9 Major depressive disorder, single episode, unspecified; I20.9 Angina pectoris, unspecified; I49.9 Cardiac arrhythmia, unspecified; E78.5 Hyperlipidemia, unspecified; I10 Essential (primary) hypertension; R29.6 Repeated falls; W19.XXXA Unspecified fall, initial encounter; Y92.008 Other place in unspecified non-institutional (private) residence as the place of occurrence of the external cause; Y99.8 Other external cause status
CPT/HCPCS: 36415; 73080; 80053; 81000; 85025; 87088; 96374